=== PATIENT | female | born 1945 | race Caucasian/White ===

== ENCOUNTER 2021-11-15 08:38 | Emergency (ER) | payer MEDICARE ==
[2021-11-15 09:18] LABS: HEMOGLOBIN 14.7 gm/dl (12.3-15.3); RED BLOOD COUNT 4.69 M/UL (4.00-5.10)
[2021-11-15 09:50] LABS: BUN/CREATININE RATIO 12 (0-10)
[2021-11-15] MEDS ORDERED: ZITHROMAX250 MG PO (11:25)
== END 2021-11-15 12:22 | disposition home or self-care (01) ==
LOC: ER1 08:38
PROVIDERS: Student in an Organized Health Care Education/Training Program
DX: J44.1 Chronic obstructive pulmonary disease with (acute) exacerbation (principal); I10 Essential (primary) hypertension; F17.210 Nicotine dependence, cigarettes, uncomplicated; Z20.822 Contact with and (suspected) exposure to COVID-19
CPT/HCPCS: 71045; 80048; 82550; 82553; 84484; 85025; 93005; 94664; 96374; 99285; J1100; U0002